=== PATIENT | female | born 1985 | race American Indian/Alaskan Native ===

== ENCOUNTER 2019-02-24 07:16 | Emergency (ER) | payer MEDICAID, MEDICARE, OTHER ==
[2019-02-24 08:23] LABS: Basophils # (Auto) 0.1 K/mm3 (0.0-0.1); Basophils % (Auto) 1.3 % (0.0-1.8); Eosinophils # (Auto) 0.2 K/mm3 (0.0-0.4); Eosinophils % (Auto) 3.2 % (0.0-4.3); Hematocrit 35.4 % (30.3-42.9); Hemoglobin 11.4 gm/dl (10.1-14.3); Lymphocytes # (Auto) 1.7 K/mm3 (1.2-5.4); Lymphocytes % (Auto) 26.9 % (13.4-35.0); Mean Corpuscular HGB Conc 32 % (30-34); Mean Corpuscular Volume 81 fl (79-97); Monocytes # (Auto) 0.6 K/mm3 (0.0-0.8); Monocytes % (Auto) 9.1 % (0.0-7.3); Platelet Count 288 K/mm3 (140-440); Red Blood Count 4.36 M/mm3 (3.65-5.03); Red Cell Distribution Width 16.4 % (13.2-15.2)
[2019-02-24 08:36] LABS: Partial Thromboplastin Time 28.8 Sec. (24.2-36.6)
--- NOTE | 2019-02-24 08:37 | Emergency Department Report ---
ED General Adult HPI - General Chief complaint: Chest Pain Stated complaint: CHEST PAIN/SHARLA Time Seen by Provider: 02/24/19 07:57 Source: patient, EMS Mode of arrival: Stretcher Limitations: No Limitations - History of Present Illness Initial comments: 33-year-old female notes that she is under a lot of stress lately. She states that she awoke with midsternal chest pain about 3 in the morning today. She was transported to this facility for further evaluation by EMS. I reviewed the prehospital EKG which shows normal sinus rhythm with normal repolarization. Patient states that she has never gone to the hospital for evaluation of chest pain or anything else in the past. She denies previous hospitalization. She denies a history of NH or pulmonary embolism and family member. She does not take any chronic medications. The patient doesn't spontaneously offer much in the way of past medical history. Upon further questioning, the patient reports a history of asthma. She states when asked about her diffuse annular skin rash that she does not know if this is due to. She admits that she went to a doctor has "a child 3 times" for this. She does not know what her diagnosis is. She has not familiar with lupus or sarcoidosis as a diagnosis. Patient states the chest pain is sharp and somewhat worsened by deep inspiration. It is very positional/musculoskeletal as well increasing on a positional change turning or bending. She does not report cough fever or chills. She does report some generalized dizziness, and shortness breath and nausea. -: This morning Location: chest (mid sternal) Radiation: non-radiation Quality: sharp Consistency: constant Improves with: none Worsens with: none Associated Symptoms: denies other symptoms - Related Data Previous Rx's Medication Instructions Recorded Last Taken Type Acetaminophen/Codeine 1 tab PO Q6H PRN #20 tab 06/11/14 Unknown Rx [Acetaminophen-Codeine #3 TAB] Vit/Iron Fum/Folic AC 1 each PO QDAY #90 tablet 06/11/14 Unknown Rx [ Vitamin Tablet] Promethazine [Phenergan] 25 mg PO Q6H PRN #30 tablet 06/11/14 Unknown Rx metroNIDAZOLE 0.75%(NF) [Metrogel 1 applicatio TP BID #10 tube 06/11/14 Unknown Rx 0.75%] Naproxen [Naprosyn] 500 mg PO BID #10 tablet 02/24/19 Unknown Rx Allergies Allergy/AdvReac Type Severity Reaction Status Date / Time Penicillins Allergy Swelling Verified 02/24/19 08:45 ED Review of Systems ROS: Stated complaint: CHEST PAIN/SHARLA Other details as noted in HPI Constitutional: other (dizziness). denies: chills, fever Eyes: denies: eye pain, eye discharge, vision change ENT: denies: ear pain, throat pain Respiratory: shortness of breath. denies: cough, wheezing Cardiovascular: chest pain. denies: palpitations Endocrine: no symptoms reported Gastrointestinal: nausea. denies: abdominal pain, diarrhea Genitourinary: denies: urgency, dysuria, discharge Musculoskeletal: denies: back pain, joint swelling, arthralgia Skin: denies: rash, lesions Neurological: denies: headache, weakness, paresthesias Psychiatric: denies: anxiety, depression Hematological/Lymphatic: denies: easy bleeding, easy bruising ED Past Medical Hx - Past Medical History Previous Medical History?: No - Surgical History Past Surgical History?: No - Social History Smoking Status: Former Smoker Substance Use Type: None - Medications Home Medications: Home Medications Medication Instructions Recorded Confirmed Last Taken Type Acetaminophen/Codeine 1 tab PO Q6H PRN #20 tab 06/11/14 Unknown Rx [Acetaminophen-Codeine #3 TAB] Vit/Iron Fum/Folic AC 1 each PO QDAY #90 tablet 06/11/14 Unknown Rx [ Vitamin Tablet] Promethazine [Phenergan] 25 mg PO Q6H PRN #30 tablet 06/11/14 Unknown Rx metroNIDAZOLE 0.75%(NF) [Metrogel 1 applicatio TP BID #10 tube 06/11/14 Unknown Rx 0.75%] Naproxen [Naprosyn] 500 mg PO BID #10 tablet 02/24/19 Unknown Rx ED Physical Exam - General Limitations: No Limitations General appearance: alert, in no apparent distress - Head Head exam: Present: atraumatic, normocephalic - Eye Eye exam: Present: normal appearance. Absent: scleral icterus - ENT ENT exam: Present: mucous membranes moist - Neck Neck exam: Present: normal inspection - Respiratory Respiratory exam: Present: normal lung sounds bilaterally, chest wall tenderness (which reproduces the patient's pain). Absent: respiratory distress - Cardiovascular Cardiovascular Exam: Present: regular rate, normal rhythm. Absent: systolic murmur, diastolic murmur, rubs, gallop - GI/Abdominal GI/Abdominal exam: Present: soft, normal bowel sounds. Absent: distended, tenderness, guarding, rebound, rigid - Extremities Exam Extremities exam: Present: normal inspection, normal capillary refill. Absent: pedal edema, joint swelling, calf tenderness - Back Exam Back exam: Present: normal inspection - Neurological Exam Neurological exam: Present: alert, oriented X3, CN II-XII intact. Absent: motor sensory deficit - Psychiatric Psychiatric exam: Present: normal affect, anxious - Skin Skin exam: Present: warm, dry, normal color. Absent: rash - Expanded Skin Exam Expanded Type of lesion: Present: rash Distribution of rash: RUE, LUE, RLE, LLE Description of rash: Present: indurated (annular hyperpigmented some are crusty), other - Other Other exam information: Some crusty annular lesions hyperpigmented tears post inflammatory central clearing ED Course Vital Signs 02/24/19 02/24/19 02/24/19 07:46 07:50 09:14 Temperature 98.6 F Pulse Rate 67 65 Respiratory 14 14 13 Rate Blood Pressure 105/70 Blood Pressure 105/70 102/70 [Left] O2 Sat by Pulse 100 100 100 Oximetry 02/24/19 10:22 Temperature 98.8 F Pulse Rate 57 L Respiratory 19 Rate Blood Pressure Blood Pressure 102/48 [Left] O2 Sat by Pulse 100 Oximetry - Reevaluation(s) Reevaluation #1: Patient resting comfortably. Symptoms improved. Pulse oximetry is 100% on room air. She states she is ready for discharge. It would appear that she has a chest wall pain syndrome. 02/24/19 10:27 ED Medical Decision Making - Lab Data Result diagrams: 02/24/19 08:05 02/24/19 08:05 Laboratory Results - last 24 hr 02/24/19 02/24/19 02/24/19 08:05 08:05 08:05 WBC 6.3 RBC 4.36 Hgb 11.4 Hct 35.4 MCV 81 MCH 26 L MCHC 32 RDW 16.4 H Plt Count 288 Lymph % (Auto) 26.9 [place] % (Auto) 9.1 H Eos % (Auto) 3.2 Baso % (Auto) 1.3 Lymph # 1.7 [place] # 0.6 Eos # 0.2 Baso # 0.1 Seg Neutrophils % 59.5 Seg Neutrophils # 3.7 PT INR APTT D-Dimer Sodium 137 Potassium 4.1 Chloride 103.8 Carbon Dioxide 21 L Anion Gap 16 BUN 7 Creatinine 0.7 Estimated GFR > 60 BUN/Creatinine Ratio 10 Glucose 102 H Calcium 8.5 Total Bilirubin Direct Bilirubin AST ALT Alkaline Phosphatase Total Creatine Kinase CK-MB (CK-2) CK-MB (CK-2) Rel Index Troponin T < 0.010 Total Protein Albumin Albumin/Globulin Ratio HCG, Qual Negative Urine Color Urine Turbidity Urine pH Ur Specific [place] Urine Protein Urine Glucose (UA) Urine Ketones Urine Blood Urine Nitrite Urine Bilirubin Urine Urobilinogen Ur Leukocyte Esterase Urine WBC (Auto) Urine RBC (Auto) U Epithel Cells (Auto) Urine Mucus Urine Opiates Screen Urine Methadone Screen Ur Barbiturates Screen Ur Phencyclidine Scrn Ur Amphetamines Screen U Benzodiazepines Scrn Urine Cocaine Screen U Marijuana (THC) Screen Drugs of Abuse Note 02/24/19 02/24/19 02/24/19 08:05 08:05 08:45 WBC RBC Hgb Hct MCV MCH MCHC RDW Plt Count Lymph % (Auto) [place] % (Auto) Eos % (Auto) Baso % (Auto) Lymph # [place] # Eos # Baso # Seg Neutrophils % Seg Neutrophils # PT 13.8 INR 1.00 APTT 28.8 D-Dimer 173.64 Sodium Potassium Chloride Carbon Dioxide Anion Gap BUN Creatinine Estimated GFR BUN/Creatinine Ratio Glucose Calcium Total Bilirubin 0.30 Direct Bilirubin < 0.2 AST 14 ALT 11 Alkaline Phosphatase 72 Total Creatine Kinase 96 CK-MB (CK-2) 1.1 CK-MB (CK-2) Rel Index 1.1 Troponin T Total Protein 7.1 Albumin 3.7 L Albumin/Globulin Ratio 1.1 HCG, Qual Urine Color Yellow Urine Turbidity Cloudy Urine pH 6.0 Ur Specific [place] 1.016 Urine Protein <15 mg/dl Urine Glucose (UA) Neg Urine Ketones Neg Urine Blood Neg Urine Nitrite Neg Urine Bilirubin Neg Urine Urobilinogen < 2.0 Ur Leukocyte Esterase Mod Urine WBC (Auto) 5.0 Urine RBC (Auto) 7.0 U Epithel Cells (Auto) 47.0 H Urine Mucus 1+ Urine Opiates Screen Urine Methadone Screen Ur Barbiturates Screen Ur Phencyclidine Scrn Ur Amphetamines Screen U Benzodiazepines Scrn Urine Cocaine Screen U Marijuana (THC) Screen Drugs of Abuse Note 02/24/19 08:45 WBC RBC Hgb Hct MCV MCH MCHC RDW Plt Count Lymph % (Auto) [place] % (Auto) Eos % (Auto) Baso % (Auto) Lymph # [place] # Eos # Baso # Seg Neutrophils % Seg Neutrophils # PT INR APTT D-Dimer Sodium Potassium Chloride Carbon Dioxide Anion Gap BUN Creatinine Estimated GFR BUN/Creatinine Ratio Glucose Calcium Total Bilirubin Direct Bilirubin AST ALT Alkaline Phosphatase Total Creatine Kinase CK-MB (CK-2) CK-MB (CK-2) Rel Index Troponin T Total Protein Albumin Albumin/Globulin Ratio HCG, Qual Urine Color Urine Turbidity Urine pH Ur Specific [place] Urine Protein Urine Glucose (UA) Urine Ketones Urine Blood Urine Nitrite Urine Bilirubin Urine Urobilinogen Ur Leukocyte Esterase Urine WBC (Auto) Urine RBC (Auto) U Epithel Cells (Auto) Urine Mucus Urine Opiates Screen Presumptive negative Urine Methadone Screen Presumptive negative Ur Barbiturates Screen Presumptive negative Ur Phencyclidine Scrn Presumptive negative Ur Amphetamines Screen Presumptive negative U Benzodiazepines Scrn Presumptive negative Urine Cocaine Screen Presumptive negative U Marijuana (THC) Screen Presumptive negative Drugs of Abuse Note Disclamer - EKG Data -: EKG Interpreted by Al EKG shows normal: sinus rhythm, axis, intervals, QRS complexes, ST-T waves Rate: normal - EKG Data Interpretation: no acute changes - Radiology Data Radiology results: report reviewed Chest x-ray is normal Critical care attestation.: If time is entered above; I have spent that time in minutes in the direct care of this critically ill patient, excluding procedure time. ED Disposition Clinical Impression: Chest wall pain Disposition: DC-01 TO HOME OR SELFCARE Is pt being admited?: No Does the pt Need Aspirin: No Condition: Stable Instructions: Chest Pain (ED), Costochondritis (ED) Additional Instructions: Follow-up with primary care physician. I will also recommend that you see a blender/braze applicator concerning her chronic skin condition. Return to the emergency department any acute change or problems. Prescriptions: Naproxen [Naprosyn] 500 mg PO BID #10 tablet Referrals: PALAK TROTTER MD [Primary Care Provider] - 2-3 Days Time of Disposition: 10:29
[2019-02-24 08:41] LABS: Creatine Kinase MB 1.1 ng/mL (0.0-4.0)
[2019-02-24] MEDS ORDERED: ZOFRAN IV ONE (08:41)
[2019-02-24] MEDS ORDERED: TORADOL IV ONE (08:41)
[2019-02-24 08:44] LABS: Alanine Aminotransferase 11 units/L (7-56)
[2019-02-24 08:58] LABS: BUN/Creatinine Ratio 10; Blood Urea Nitrogen 7 mg/dL (7-17); Calcium 8.5 mg/dL (8.4-10.2); Hemolysis Index 7
[2019-02-24 09:02] LABS: Albumin 3.7 g/dL (3.9-5)
[2019-02-24 09:06] LABS: Bilirubin,Direct < 0.2 mg/dL (0-0.2)
--- NOTE | 2019-02-24 09:17 | XRay Report ---
AP CHEST: HISTORY: Difficulty in breathing AP view of the chest demonstrates a normal mediastinal and cardiac contour with clear lungs and normal bony and soft tissue structures. IMPRESSION: Unremarkable AP chest.
[2019-02-24 09:29] LABS: Bilirubin,Urine NEG (Negative); Blood,Urine NEG (Negative); Color,Urine Yellow (Yellow); Mucus,Urine 1+ /HPF; Protein,Urine <15 mg/dL mg/dL (Negative); Urobilinogen,Urine < 2.0 mg/dL (<2.0)
[2019-02-24 09:30] LABS: Amphetamine Screen,Urine PRESUMPTIVE NEGATIVE; Benzodiazepines Screen,Urine PRESUMPTIVE NEGATIVE; Cannabinoid Screen,Urine PRESUMPTIVE NEGATIVE; Cocaine Screen,Urine PRESUMPTIVE NEGATIVE; Methadone Screen,Urine PRESUMPTIVE NEGATIVE; Opiate Screen,Urine PRESUMPTIVE NEGATIVE
[2019-02-24] MEDS ORDERED: ATIVAN IV ONE (10:12)
[2019-02-24 10:22] VITALS: BP 102/48
== END 2019-02-24 10:40 | disposition home or self-care (01) ==
LOC: ED 07:16
DX: R07.89 Other chest pain (principal); Z87.891 Personal history of nicotine dependence; Z88.0 Allergy status to penicillin
CPT/HCPCS: 36415; 71045; 80048; 80076; 80307; 81001; 82550; 82553; 84484; 84703; 85025; 85379; 85610; 85730; 93005; 93010; 96374; 96375; 99284; J1885; J2060; J2405